=== PATIENT | male | born 1985 | race Two or more races ===

== ENCOUNTER 2017-07-12 12:58 | Emergency (ER) | payer BC ==
[2017-07-12 14:20] VITALS: BP 146/72
--- NOTE | 2017-07-12 15:08 | UC ---
General HPI - HPI Summary HPI Summary: Patient presents with sudden onset complaints of generalized fatigue, malaise, body aches, headache, and fever and chills, with associated diarrhea. He also reports episode of coughing. He states he has loss his appetite. Denies chest pain, abdominal pain, nausea, vomiting, dysuria. He is drinking fluids, slightly less than normal. He denies any recent travel or ill contacts. - History of Current Complaint Chief Complaint: UCRespiratory Stated Complaint: BODYACHE, FEVER Time Seen by Provider: 07/12/17 14:27 Hx Obtained From: Patient Onset/Duration: Sudden Onset, Lasting Days Timing: Constant Onset Severity: Mild Current Severity: Moderate Associated Signs & Symptoms: Positive: Cough, Decreased Oral Intake, Fever, Headache - Allergy/Home Medications Allergies/Adverse Reactions: Allergies Allergy/AdvReac Type Severity Reaction Status Date / Time No Known Allergies Allergy Verified 07/12/17 14:20 Home Medications: Home Medications Acetaminophen [Acetaminophen Extra Stren] 500 mg PO PRN 07/12/17 [History] Phenylephrine-Diphenhydramine- [THERAFLU SEVERE COLD & CO Packet] 1 yvonne PO PRN 07/12/17 [History] PMH/Surg Hx/FS Hx/Imm Hx Previously Healthy: Yes - Surgical History Surgical History: None - Family History Known Family History: Positive: Unknown - Social History Occupation: Employed Full-time Lives: Alone Alcohol Use: Weekly Substance Use Type: Other Substance Use Comment - Amount & Last Used: TINCTURE OF [place] Smoking Status (MU): Never Smoked Tobacco - Immunization History Most Recent Influenza Vaccination: no Review of Systems Constitutional: Fever, Chills, Fatigue Skin: Negative Eyes: Negative ENT: Negative, Sore Throat, Ear Ache, Nasal Discharge, Sinus Congestion Respiratory: Cough Cardiovascular: Negative Gastrointestinal: Negative Genitourinary: Negative Motor: Negative Neurovascular: Negative Musculoskeletal: Negative Neurological: Negative Psychological: Negative Is Patient Immunocompromised?: No All Other Systems Reviewed And Are Negative: Yes Physical Exam Triage Information Reviewed: Yes Appearance: Ill-Appearing Vital Signs: Initial Vital Signs Temp 100.4 F 07/12/17 14:14 Pulse 91 07/12/17 14:14 Resp 16 07/12/17 14:14 BP 146/72 07/12/17 14:14 Pulse Ox 97 07/12/17 14:14 Vital Signs Reviewed: Yes Eye Exam: Normal ENT: Positive: Pharynx normal, Uvula midline Neck exam: Normal Neck: Positive: 1 Respiratory: Positive: Lungs clear, Normal breath sounds, No respiratory distress, No accessory muscle use Cardiovascular Exam: Normal Abdominal Exam: Normal Skin Exam: Normal Course/Dx - Course Course Of Treatment: Patient presents with an unremarkable past medical history. He presents wtih sudden onset complaints of general body aches, fatigue , malaise, cough, chest congestion and anoexia. He is drinking fluids and appeara well hydrated, vs/bp146/72 no histroy of htn stress responce to illness , t-100.4, p-91 r-16. His inflenza test was "A" positive. He was treated with tamiflu 75 mg bid x 5 days. He was taken out of work for 7 days, told to rest, increase fluids, take tylenol and/or advil for pain and or fever. I told his to monitor for worsening symptoms and should that occur to go directly to the ER. He did verbalize understanding of and in agreement of discharge plan. - Differential Dx - Multi-Symptom Differential Diagnoses: Other - influenza Provider Diagnoses: influenza Discharge - Discharge Plan Condition: Stable Disposition: HOME Prescriptions: Oseltamivir CAP* [Tamiflu CAP*] 75 mg PO BID #10 cap Patient Education Materials: Influenza (ED) Forms: *Work Release Referrals: Nick New MD [Primary Care Provider] -
== END 2017-07-12 15:08 | disposition home or self-care (01) ==
LOC: UCEAST 12:58
DX: J11.1 Influenza due to unidentified influenza virus with other respiratory manifestations (principal)
CPT/HCPCS: 87502; 99212; G0463

== ENCOUNTER 2018-02-07 11:53 | Emergency (ER) | payer BC ==
[2018-02-07 14:02] VITALS: BP 130/41
--- NOTE | 2018-02-07 14:51 | RAD ---
INDICATION: Left knee pain COMPARISON: None TECHNIQUE: AP, lateral, tunnel, and sunrise views were obtained. FINDINGS: The bony structures, joint spaces, and soft tissues are normal for age. IMPRESSION: NEGATIVE EXAMINATION.
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
== END 2018-02-07 15:35 | disposition home or self-care (01) ==
LOC: UCEAST 11:53
DX: M23.92 Unspecified internal derangement of left knee (principal); M25.562 Pain in left knee; X58.XXXA Exposure to other specified factors, initial encounter; Y93.89 Activity, other specified; Y92.9 Unspecified place or not applicable
CPT/HCPCS: 99211; G0463